=== PATIENT | female | born 1970 | race Caucasian/White ===

== ENCOUNTER 2017-09-13 08:50 | Emergency (ER) | payer MEDICAID ==
[2017-09-13 09:04] VITALS: BP 142/93
[2017-09-13] MEDS ORDERED: TETRACAINE HCL 0.5% OPH SOLN 2 ML OU ONE (09:35)
[2017-09-13] MEDS ORDERED: TETRACAINE HCL 0.5% OPH SOLN 2 ML ONE (09:36)
--- NOTE | 2017-09-13 10:05 | ER Document Report ---
ED Eye Complaint - General Chief Complaint: Eye Problem Stated Complaint: EYE PROBLEM Time Seen by Provider: 09/13/17 09:27 Mode of Arrival: Ambulatory Information source: Patient Notes: 47-year-old female presents to ED for complaint of bilateral subconjunctival hemorrhage. She states that yesterday she had some itching and felt she might of had an eyelash in the right eye. She flushed them out in the shower and then they started become a little bloodshot. Said as the day went on the developed a blistery blood-filled pinkish looking and overnight started becoming swell and. This morning she noticed some little tiny bags under her eyes and now she has bruises under her eyes with small bags States she has not any injuries that she knows that she has not changed any products she has not done anything to her eyes. She states she did take some Benadryl just in case it was an allergic reaction. She states she has had pinkeye before and this is nothing like that. She denies any irritation except for some mild itching at this time. TRAVEL OUTSIDE OF THE [place] IN LAST 30 DAYS: No - HPI Onset: Yesterday Eye location: Bilateral Injury: No Quality of pain: No pain Severity: None Pain Level: Denies Safety glasses worn: No Contact lenses worn: No Associated symptoms: Itching, Other - Subconjunctival hemorrhage bilateral - Related Data Allergies/Adverse Reactions: hydrocodone [Hydrocodone] Allergy (Severe, Verified 09/13/17 08:52) muscle spasms latex [Latex] Allergy (Severe, Verified 09/13/17 08:52) swelling methylphenidate HCl [From Ritalin] Allergy (Severe, Verified 09/13/17 08:52) UNKNOWN modafinil [From Provigil] Allergy (Severe, Verified 09/13/17 08:52) skin irritation oxycodone [Oxycodone] Allergy (Severe, Verified 09/13/17 08:52) "does not work" povidone-iodine [From Betadine] Allergy (Severe, Verified 09/13/17 08:52) swelling Soap [From Betadine] Allergy (Severe, Verified 09/13/17 08:52) swelling cortisone [Cortisone] Adverse Reaction (Severe, Verified 09/13/17 08:52) rash Past Medical History - General Information source: Patient - Social History Smoking Status: Current Every Day Smoker Cigarette use (# per day): No Chew tobacco use (# tins/day): No Smoking Education Provided: No Frequency of alcohol use: Rare Drug Abuse: None Lives with: Family Family History: Arthritis, CAD, CVA, DM, Hyperlipidemia, Hypertension, Malignancy, Thyroid Disfunction Patient has suicidal ideation: No Patient has homicidal ideation: No - Past Medical History Cardiac Medical History: Reports: Hx Hypertension - ON MEDS Pulmonary Medical History: Reports: Hx Asthma - INHALERS EENT Medical History: Reports: None Neurological Medical History: Reports: None Endocrine Medical History: Reports: None Renal/ Medical History: Reports: None Malignancy Medical History: Reports: None GI Medical History: Reports: None Musculoskeltal Medical History: Reports Hx Arthritis - mild, Reports Hx Musculoskeletal Deformity, Reports Hx Musculoskeletal Trauma Skin Medical History: Reports None Psychiatric Medical History: Reports: Hx Anxiety, Hx Depression Traumatic Medical History: Reports: Hx Fractures - ribs x3 nose foot Infectious Medical History: Reports: None Past Surgical History: Reports: Hx Neurologic Surgery - c5-6 fusion, Hx Orthopedic Surgery - c5 c6 fusion, knee right - Immunizations Immunizations up to date: No Hx Diphtheria, Pertussis, Tetanus Vaccination: No Hx Pneumococcal Vaccination: 10/14/00 Review of Systems - Review of Systems Constitutional: No symptoms reported EENT: Other - Bilateral subconjunctival hemorrhage with mild swelling to the conjunctival mild bags under her eyes with minimal bruising Cardiovascular: No symptoms reported Respiratory: No symptoms reported Gastrointestinal: No symptoms reported Genitourinary: No symptoms reported Female Genitourinary: No symptoms reported Musculoskeletal: No symptoms reported Skin: No symptoms reported Hematologic/Lymphatic: No symptoms reported Neurological/Psychological: No symptoms reported -: Yes All other systems reviewed and negative Physical Exam - Vital signs Vitals: Temp Pulse Resp BP Pulse Ox 97.9 F 89 16 142/93 H 97 09/13/17 09:01 09/13/17 09:01 09/13/17 09:01 09/13/17 09:01 09/13/17 09:01 Interpretation: Normal - General General appearance: Appears well, Alert - HEENT Head: Normocephalic, Atraumatic Eyes: Normal Conjunctiva: Other - Subconjunctival hemorrhage with swelling Cornea: No: Corneal abrasion, Corneal ulcer, Embedded foreign body, Flourescein stain uptake, Superficial foreign body Pupils: PERRL Visual acuity- Right eye: 20/25 Visual acuity- Left eye: 20/25 Visual acuity- Both eyes: 20/25 Corrective lenses worn: - without glasses Lids everted for exam: bilateral: Normal Fundascopic: Normal Visual coto normal: Yes Ears: Normal External canal: Normal Tympanic membrane: Normal Sinus: Normal Nasal: Normal Mouth/Lips: Normal Mucous membranes: Normal Pharynx: Normal Neck: Normal - She is taking a bus or cab - Respiratory Respiratory status: No respiratory distress Chest status: Nontender Breath sounds: Normal Chest palpation: Normal - Cardiovascular Rhythm: Regular Heart sounds: Normal auscultation Murmur: No - Abdominal Inspection: Normal Distension: No distension Bowel sounds: Normal Tenderness: Nontender Organomegaly: No organomegaly - Back Back: Normal, Nontender - Extremities General upper extremity: Normal inspection, Nontender, Normal color, Normal ROM , Normal temperature General lower extremity: Normal inspection, Nontender, Normal color, Normal ROM , Normal temperature, Normal weight bearing. No: Aicha's sign - Neurological Neuro grossly intact: Yes Cognition: Normal Orientation: AAOx4 [place] Coma Scale Eye Opening: Spontaneous [place] Coma Scale Verbal: Oriented [place] Coma Scale Motor: Obeys Commands [place] Coma Scale Total: 15 Speech: Normal Motor strength normal: LUE, RUE, LLE, RLE Sensory: Normal - Psychological Associated symptoms: Normal affect, Normal mood - Skin Skin Temperature: Warm Skin Moisture: Dry Skin Color: Normal Course - Re-evaluation Re-evalutation: 09/13/17 10:[address] palma who came and examined the patient and recommended patient be sent to an exceptional children teacher. Dr. Leos ophthalmology was contacted and stated that he would see the patient today at 130. Patient was given name address and phone number for Dr. Leos to keep an appointment at 130. - Vital Signs Vital signs: Temp Pulse Resp BP Pulse Ox 97.9 F 89 16 142/93 H 97 09/13/17 09:01 09/13/17 09:01 09/13/17 09:01 09/13/17 09:01 09/13/17 09:01 Discharge - Discharge Clinical Impression: Subconjunctival hemorrhage of both eyes Condition: Stable Disposition: HOME, SELF-CARE Additional Instructions: Subconjunctival Hemorrhage You've had an episode of bleeding between the sclera (white of the eye) and the membrane which covers it. While ugly, this bleeding is not dangerous in any way. Your eye has been examined to ensure that no internal hemorrhage is present. While subconjunctival hemorrhage can be caused by a minor injury, it is usually due to coughing, sneezing, straining, or rubbing the eye. There is no specific treatment. Expect the red area to spread considerably. Avoid rubbing the eye. It may take two or three weeks for the blood to clear. If you have any pain, discharge from the eye, or problems with your vision , call the doctor or return immediately for re-evaluation. FOLLOW-UP CARE: If you have been referred to a physician for follow-up care, call the physician s office for an appointment as you were instructed or within the next two days. If you experience worsening or a significant change in your symptoms, notify the physician immediately or return to the Emergency Department at any time for re-evaluation. Follow-up with Dr. Leos office today at 130. Please be there a few minutes early for any paperwork you may need to fill out. An appointment has been made for 130. Referrals: ARIS LAUAR MD [Primary Care Provider] - Follow up as needed OSCAR LEOS MD [ACTIVE STAFF] - 09/13/17 1:30 pm
== END 2017-09-13 10:05 | disposition home or self-care (01) ==
LOC: ER 08:50
DX: H11.33 Conjunctival hemorrhage, bilateral (principal); L29.9 Pruritus, unspecified; F17.200 Nicotine dependence, unspecified, uncomplicated; J45.909 Unspecified asthma, uncomplicated; I10 Essential (primary) hypertension; Z88.5 Allergy status to narcotic agent; Z88.8 Allergy status to other drugs, medicaments and biological substances; Z91.040 Latex allergy status; Z88.3 Allergy status to other anti-infective agents
CPT/HCPCS: 99283; J3490

== ENCOUNTER 2017-10-30 05:40 | Day surgery (SDC) | payer MEDICAID ==
[~2017-10-30 05:40] MED LIST: ACETAMINOPHEN 325 MG TABLET PO PRN; CEFAZOLIN 1 GM/D5W RTU 1 GM/50 ML RTUPB IV PRN
[2017-10-30 06:55] LABS: ABSOLUTE BASOPHILS # (AUTO) 0.1 10^3/uL (0.0-0.2); ABSOLUTE EOSINOPHILS # (AUTO) 0.2 10^3/uL (0.0-0.6); ABSOLUTE LYMPHOCYTES (AUTO) 2.1 10^3/uL (0.5-4.7); ABSOLUTE MONOCYTES (AUTO) 0.7 10^3/uL (0.1-1.4); BASOPHILS % (AUTO) 0.8 % (0-2); EOSINOPHILS % (AUTO) 3.3 % (0-6); HEMATOCRIT 38.8 % (36.0-47.0); LYMPHOCYTES % (AUTO) 29.4 % (13-45); MEAN CORPUSCULAR HEMOGLOBIN 26.9 pg (27.0-33.4); MEAN CORPUSCULAR HGB CONC 33.4 g/dL (32.0-36.0); MEAN CORPUSCULAR VOLUME 81 fl (80-97); MONOCYTES % (AUTO) 9.6 % (3-13); PLATELET COUNT 304 10^3/uL (150-450); RED BLOOD COUNT 4.82 10^6/uL (3.72-5.28); RED CELL DISTRIBUTION WIDTH 14.3 % (11.5-14.0); SEGMENTED NEUTROPHILS % (AUTO) 56.9 % (42-78); TOTAL CELLS COUNTED % (AUTO) 100 %
[2017-10-30 07:21] LABS: ALANINE AMINOTRANSFERASE 40 U/L (9-52); ALBUMIN 4.6 g/dL (3.5-5.0); ALKALINE PHOSPHATASE 80 U/L (38-126); AMYLASE 50 U/L (30-110); ANION GAP 11 (5-19); ASPARTATE AMINO TRANSFERASE 25 U/L (14-36); BILIRUBIN,DIRECT 0.2 mg/dL (0.0-0.4); BILIRUBIN,TOTAL 0.2 mg/dL (0.2-1.3); BLOOD UREA NITROGEN 22 mg/dL (7-20); CALCIUM 9.9 mg/dL (8.4-10.2); CARBON DIOXIDE 28 mmol/L (22-30); CHLORIDE 105 mmol/L (98-107); GLUCOSE 116 mg/dL (75-110); POTASSIUM 4.7 mmol/L (3.6-5.0); SODIUM 144.1 mmol/L (137-145); TOTAL PROTEIN 7.3 g/dL (6.3-8.2)
[2017-10-30] MEDS ORDERED: BUPIVACAINE HCL 0.25 % INJ/PF (2.5 MG/1 ML) 30 ML VIAL ONE (10:51)
[2017-10-30] MEDS ORDERED: ALBUTEROL SULFATE 0.083% NEB 2.5 MG/3 ML AMPUL NEB ONE (11:22)
[2017-10-30] MEDS ORDERED: PROPOFOL INJ 200 MG/20 ML VIAL IV ONE (12:41)
[2017-10-30] MEDS ORDERED: MIDAZOLAM 2 MG/2 ML INJ ONE (12:41)
[2017-10-30] MEDS ORDERED: FENTANYL CITRATE INJ/PF 100 MCG/2 ML AMPUL ONE ×2 (12:41)
[2017-10-30] MEDS ORDERED: ACETAMINOPHEN 100 ML IV ONE (13:45)
[2017-10-30] MEDS ORDERED: FENTANYL CITRATE INJ/PF 100 MCG/2 ML AMPUL IV PRN ×3 (13:45)
[2017-10-30] MEDS ORDERED: DIPHENHYDRAMINE HCL 50 MG/ML VIAL IV PRN (13:45)
[2017-10-30] MEDS ORDERED: PROMETHAZINE HCL INJ 25 MG/1 ML VIAL IV PRN (13:45)
--- NOTE | 2017-10-30 14:12 | PDOC DISCHARGE SUMMARY ---
Discharge Summary (SDC) - Discharge Final Diagnosis: cholelithiasis Date of Surgery: 10/30/17 Discharge Date: 10/30/17 Condition: Stable Treatment or Instructions: [facility] [address], [place] [address] Discharge Instructions: Laparoscopic Surgery 1. General Information: a. DO NOT DRIVE a car or operate dangerous machinery for 3-4 days or while taking narcotic pain pills. b. DO NOT consume alcohol, tranquilizers, sleeping medications or any non- prescribed medications for 24 hours unless approved by your doctor or as long as taking narcotic prescription medications. c. DO NOT make important decisions or sign any important papers for the first 24 hours after surgery. d. When discharged home the same day of surgery have a responsible person with you for the first night. 2. Activity Restrictions: 2 weeks a. NO heavy lifting, straining abdominal muscles, bending over a lot, yard work, house work, or sports for [address] NOT [address] for 3-4 days c. It is fine to go for walks, up and down steps, ride in a car. d. Elevate your head when sleeping/resting. 3. Treatment: a. You may shower 24 hours after surgery, no baths or swimming for 2 weeks. Remove band-aids or dressings before shower but leave paper strips (steri-strips ) on the skin to fall off on their own. If still on at postoperative visit they will be removed then. b. Drainage of fluid or blood is not unusual from an incision. If occurs, you can clean with peroxide and cotton ball daily and cover with dry gauze until the wound seals. c. If a lot of bleeding occurs, you can hold pressure with a gauze or cloth over the site for 10 minutes and it will usually stop. If bleeding continues you will need to call for possible evaluation in office or emergency room. 4. Medications: a. __Toradol__ may be taken for pain as needed, one tablet every 6 hours. You may switch to plain Tylenol, Advil or Aleve as you transition from the narcotic. Many adults find good pain relief with Advil 600-800 mg three times a day with meals. This can cause indigestion, ulcers, and kidney problems with long-term use. b. You should resume all normal medications unless a change is specified by your doctors. 5. Diet: Begin with clear liquids and may progress to your normal diet if not nauseated. No high fat, high protein foods the day of surgery. 6. The following may occur after laparoscopic surgery: a. Shoulder or upper back ache from retained gas that should resolve in 1-2 days b. Soreness and bruising at incision sites will resolve with time. c. Scrotal swelling (labia in women) and bruising is often seen after hernia surgery. d. Sore throat e. Fatigue may last days to weeks. f. Difficulty urinating may occur and may need to come into emergency room for urinary catheter placement. 7. Notify Physician If: a. Worsening or pain not improved with pain medication b. Persistent nausea and vomiting c. Fever above 101 d. Persistent bleeding or swelling at operative site e. Unable to urinate and uncomfortable bladder 6-8 hours after surgery 8..Follow Up Care: a. Schedule a follow up appointment with your doctor for 2 weeks. In the event of any postoperative problems or questions or you may call the office during business hours or the On-Call physician evenings and weekends at [facility]. [facility] I understand the instructions for my postoperative care as described above and a copy has been given to me. Patient/Significant Other Witness Date Prescriptions: Ketorolac Tromethamine [Toradol 10 mg Tablet] 10 mg PO Q6HP PRN #25 tablet PRN Reason: Referrals: ARIS LAURA MD [Primary Care Provider] - Discharge Diet: Clear Liquids Discharge Activity: Activity As Tolerated, Walk Frequently Report the Following to Your Physician Immediately: Nausea, Vomiting, Fever over 101 Degrees, Drainage-Foul Smelling
[2017-10-30] MEDS ORDERED: KETOROLAC TROMETHAMINE 10 MG TABLET PO PRN (14:17)
[2017-10-30] MEDS ORDERED: ONDANSETRON HCL INJ/PF 4 MG/2 ML SDV IV PRN (14:18)
--- NOTE | 2017-10-30 14:19 | Operative Report ---
Operative Report DATE OF SURGERY: 10/30/17 PREOPERATIVE DIAGNOSIS: Symptomatic cholelithiasis cholecystitis POSTOPERATIVE DIAGNOSIS: Same OPERATION: Laparoscopic cholecystectomy 1ST TELECOM ANALYST: ELFEGO CANDELARIO 2ND Acid Concentrator: ROWENA ENNIS ANESTHESIA: GA TISSUE REMOVED OR ALTERED: gb COMPLICATIONS: None ESTIMATED BLOOD LOSS: Scant INTRAOPERATIVE FINDINGS: See below PROCEDURE: After obtaining informed consent, the patient was taken to the operating room. General Anesthesia was induced; the arms were extended, and the abdomen was exposed, and prepped and draped in a sterile fashion. Instrumentation was set up for laparoscopic cholecystectomy. Surgical plan and surgical timeout were conducted. A vertical incision was made above the umbilicus, and a verres needle was inserted uneventfully into the peritoneal cavity. Pneumoperitoneum was established. The verres needle was removed and a 5 mm trocar was inserted and a 5 mm flexible laparoscope was inserted. Visualization of the peritoneal cavity confirmed safe uneventful entry. Under direct visualization 3 additional 5 mm ports were established, one in the subxiphoid position and second in the subcostal position. Visualization of the hepatobiliary anatomy revealed no anatomic variations. A grasper was placed on the fundus of the gallbladder and the gallbladder is elevated over the right surface of the liver; a second grasper was used to grasp the infundibulum of the gallbladder. The neck of the gallbladder and junction with the cystic duct was dissected out. The Cystic artery was in its usual location medial and cephalad to the cystic duct. The cystic artery was surrounded with a right angle clamp, clipped twice proximally and divided with laparoscopic scissors. We now opened the triangle of Calot by dividing the peritoneal reflection on both the medial and lateral sides of the cystic duct infundibular junction. The critical view was obtained. We now milked the cystic duct of any possible stones, clipped the cystic duct approximately 2 times once distally and divided with scissors. The gallbladder was now removed from the undersurface of the liver using hook cautery dissection. Graspers were repositioned and the gallbladder was removed uneventfully from the abdominal cavity through the super umbilical port site incision. A few stones spilled out of the gallbladder onto the stem and these were all retrieved with the graspers. The specimen was examined, then passed off to pathology for permanent analysis. We returned to the peritoneal cavity check for bleeding, and evidence of bile leak, and there was none. We Confirmed satisfactory placement of clips on cystic duct and cystic artery were secured . At this point we felt the operation was complete. The subcutaneous tissue was then anesthetized with quarter percent Marcaine Sponge and needle counts are correct. All ports removed under direct visualization pneumoperitoneum evacuated, and 5 mm port wounds closed with 3-0 Vicryl suture, benzoin and Steri-Strips. The patient was extubated, and taken to the recovery room in stable condition. The physician dairy and food laboratory assistant, Ms. Acuña, provided assistance during this case by: Assisting and port insertion, retracting tissue, instillation of local anesthesia and closure of skin incisions.
[2017-10-30] MEDS: FENTANYL CITRATE INJ/PF 100 MCG/2 ML AMPUL ONE ×2 (14:30→14:35)
[2017-10-30] MEDS ORDERED: LIDOCAINE 2% INJ-PF (20 MG/ML) 2 ML AMPUL ONE (14:43)
[2017-10-30] MEDS ORDERED: SUCCINYLCHOLINE CHLORIDE INJ 200 MG/10 ML VIAL ONE (14:43)
[2017-10-30] MEDS ORDERED: GLYCOPYRROLATE INJ 0.4 MG/2 ML VIAL ONE (14:43)
[2017-10-30] MEDS ORDERED: ROCURONIUM BROMIDE INJ 50 MG/5 ML VIAL IV ONE (14:43)
[2017-10-30] MEDS ORDERED: NEOSTIGMINE METHYLSULFATE 10 MG/10 ML VIAL ONE (14:43)
[2017-10-30 18:28] VITALS: BP 162/97
--- NOTE | 2017-10-30 23:12 | EKG REPORT ---
SEVERITY:- NORMAL ECG - SINUS RHYTHM : Confirmed by: Cooper Rodriguez 30-Oct-2017 23:11:54
== END 2017-10-30 18:40 | disposition home or self-care (01) ==
LOC: OROUT 05:40
PROVIDERS: ATTEND Surgery
PROC: 0FT44ZZ Resection of Gallbladder, Percutaneous Endoscopic Approach (ICD-10-PCS; principal; 2017-10-30 12:30)
DX: K80.20 Calculus of gallbladder without cholecystitis without obstruction (principal); I10 Essential (primary) hypertension; G47.419 Narcolepsy without cataplexy; J45.909 Unspecified asthma, uncomplicated; E66.3 Overweight; R41.3 Other amnesia; I38 Endocarditis, valve unspecified; R01.1 Cardiac murmur, unspecified; Z88.5 Allergy status to narcotic agent; Z88.6 Allergy status to analgesic agent; Z79.899 Other long term (current) drug therapy; Z68.43 Body mass index [BMI] 50.0-59.9, adult
CPT/HCPCS: 86900; 86901; 36415; 86850; 82150; 84703; 85025; 80076; 80048; 88304 ×2; 93005; 93010; 47562; J2250; J0690; J3490 ×4; J3010; J0330; S0020; J2704; J0131; 790